=== PATIENT | female | born 1975 | race African-American/Black ===

== ENCOUNTER 2016-10-07 11:07 | Emergency (ER) | payer SELFPAY ==
[~2016-10-07] VITALS: Ht 170.2 cm; Wt 90.7 kg
--- NOTE | 2016-10-07 11:40 | ED GI/GU/ABDOMINAL COMPLAINT ---
History of Present Illness General Chief Complaint: Abdominal Pain/Flank Pain Stated Complaint: R SIDED ABD PAIN Source: patient Exam Limitations: no limitations Vital Signs & Intake/Output Vital Signs & Intake/Output Vital Signs Date Time Temp Pulse Resp B/P B/P Pulse O2 O2 Flow FiO2 Mean Ox Delivery Rate 10/07 1432 97.5 77 18 155/71 97 10/07 1116 96.7 77 20 129/73 98 Room Air Allergies Coded Allergies: No Known Allergies (10/07/16) Reconcile Medications Hydrocodone/Acetaminophen (Upton 5-325 Tablet) 5 MG-325 MG TABLET 1-2 TAB PO Q4-6 PRN PRN pain Triage Note: PT TO ED C/O "EXCRUTIATING PAIN" TO OVARY AND PELVIC AREA X A MONTH. WORSE TODAY. C/O VOMITING, DENIES DIARRHEA. DENIES S/S. Triage Nurses Notes Reviewed? yes LMP (ages 10-50): date (2 WEEKS) ? N Is pt currently ? No Onset: Abrupt Duration: day(s): (1), constant, continues in ED, getting worse Timing: recent history Quality/Severity: moderate, sharpness, stabbing Severity Numbers: 10 Location: right lower quadrant, suprapubic Radiation: no radiation Activities at Onset: none Prior Abdominal Problems: similar symptoms Sexually Active: Yes Last Time You Were Sexual: less than 2 months ago Sexual Orientation: Homosexual Use of Protection: No No Modifying Factors: none Modifying Factors: Worsens With: movement, palpation, urinating. Associated Symptoms: abdominal pain, nausea/vomiting HPI: 41-year-old female with a past medical history of asthma presents complaining of pain in her right lower abdomen for the past day. Patient reports she's been having this pain intermittently for the past year. Patient reports that pain will start about 2 weeks before her period and last for a few days before going away completely. The pain is progressively getting worse. This current episode started this morning and is much more severe than usual. Pain is located in the right lower quadrant suprapubic area and does not radiate. She describes the pain as sharp and stabbing and rates the pain as a 10 out of 10. She is not taking any medicine for the pain. This is the same type pain that she usually has each month that is more severe. She reports associated nausea and vomiting. Pain is worse when she urinates. No vaginal discharge, vaginal bleeding, frequency, urgency, back pain, chest pain, shortness of breath. She is sexually active with females only and has no history of STDs. She does report a history of uterine fibroids. No abdominal surgeries. (LENIN MASSEY PA-C) Past History Travel History Traveled to [place] past 21 day No Medical History Any Pertinent Medical History? see below for history Respiratory: asthma Surgical History Surgical History: none Psychosocial History What is your primary language Cymro Tobacco Use: Never used ETOH Use: denies use Illicit Drug Use: denies illicit drug use Family History Hx Contributory? Yes (LENIN MASSEY PA-C) Review of Systems Review of Systems Constitutional: Reports: no symptoms. EENTM: Reports: no symptoms. Respiratory: Reports: no symptoms. Cardiovascular: Reports: no symptoms. GI: Reports: see HPI, abdominal pain, nausea, vomiting. Genitourinary: Reports: no symptoms. Musculoskeletal: Reports: no symptoms. Skin: Reports: no symptoms. Neurological/Psychological: Reports: no symptoms. Hematologic/Endocrine: Reports: no symptoms. Immunologic/Allergic: Reports: no symptoms. All Other Systems: Reviewed and Negative (LENIN MASSEY PA-C) Physical Exam Physical Exam General Appearance: well developed/nourished, alert, awake, anxious, moderate distress Head: atraumatic, normal appearance Eyes: Bilateral: normal appearance, PERRL, EOMI, normal inspection. Ears, Nose, Throat, Mouth: hearing grossly normal, moist mucous membrane, Tympanic normal Neck: normal inspection, full range of motion, no midline tenderness Respiratory: normal breath sounds, chest non-tender, no respiratory distress, lungs clear Cardiovascular: regular rate/rhythm, normal peripheral pulses Peripheral Pulses: 2+ radial (R), 2+ radial (L), 2+ dorsalis pedis (R), 2+ dorsalis pedis (L) Gastrointestinal: normal bowel sounds, soft, no organomegaly, tenderness (rlq, suprapubic) Back: normal inspection, normal range of motion Extremities: normal range of motion Neurologic/Psych: no motor/sensory deficits, awake, alert, oriented x 3, normal gait, normal mood/affect Skin: intact, normal color, warm/dry Core Measures ACS in differential dx? No Severe Sepsis Present: No Septic Shock Present: No (BLACK PA-C,LENIN) Progress Differential Diagnosis: appendicitis, biliary colic, cholecystitis, diverticulitis, ectopic , gastritis, ischemic bowel, inflamm bowel dis, intrauterine , kidney stone, ovarian cyst, ovarian torsion, pancreatitis, PID/cervicitis, peptic ulcer, PUD/GERD, perforated viscous, SBO, UTI/pyelo, Uterine fibroids, mittelschmerz Plan of Care: Orders Procedure Date/time Status URINE 10/07 1152 Complete URINALYSIS 10/07 1152 Complete LIPASE 10/07 1152 Complete LACTIC ACID 10/07 1152 Complete C-REACTIVE PROTEIN 10/07 1152 Complete COMPREHENSIVE METABOLIC PANEL 10/07 1152 Complete CBC WITHOUT DIFFERENTIAL 10/07 1152 Complete Current Medications Sig/Vaishnavi Start time Last Medication Dose Stop Time Status Admin Ondansetron HCl 4 MG ONCE ONE 10/07 1215 CAN (Zofran) 10/07 1216 Laboratory Tests 10/07/16 1453: Lactic Acid Cancelled 10/07/16 1322: Urinalysis LIGHT H, Urine Color YEL, Urine Clarity HAZY H, Urine pH 6.0, Ur Specific Mccarley 1.025, Urine Protein TRACE H, Urine Ketones TRACE H, Urine Nitrite NEG, Urine Bilirubin NEG, Urine Urobilinogen 1.0, Ur Leukocyte Esterase NEG, Ur Microscopic SEDIMENT EXAMINED, Urine RBC 1-3, Urine WBC RARE, Ur Epithelial Cells MOD H, Urine Bacteria FEW H, Urine Mucus MOD H, Urine Hemoglobin NEG, Urine Glucose NEG, Urine Test NEGATIVE 10/07/16 1209: Anion Gap 10, Estimated GFR > 60, BUN/Creatinine Ratio 11.3, Glucose 89, Lactic Acid 1.1, Calcium 9.1, Total Bilirubin 0.5, AST 20, ALT 28, Alkaline Phosphatase 72, C-Reactive Prot, Quant 1.3 H, Total Protein 7.2, Albumin 4.0, Globulin 3.2, Albumin/Globulin Ratio 1.3, Lipase 37, CBC w Diff NO MAN DIFF REQ, RBC 4.46, MCV 76.6 L, MCH 24.3 L, RDW 19.3 H, MPV 8.7, Gran % 73.5, Lymphocytes % 17.2 L, Monocytes % 7.4, Eosinophils % 0.4, Basophils % 1.5, Absolute Granulocytes 8.0 H, Absolute Lymphocytes 1.9, Absolute Monocytes 0.8 H, Absolute Eosinophils 0, Absolute Basophils 0.2, PUBS MCHC 31.7 L 12 PM: Patient seen and evaluated. Patient reports she's been having the same type of pain each month about 2 weeks before her periods for over the last year. It is more severe but is located in the same spot and is in the same quality. She will have basic blood work and a CT scan of her abdomen and pelvis. She'll be given a liter normal saline and IV Toradol for pain. 2:25 PM: CT scan of the abdomen and pelvis with contrast does not show any acute abnormalities. Appendix appears normal, ovaries are normal. There are fibroids within the uterus but patient was already. Blood work is within normal limits other than mild anemia which is also likely related to uterine fibroids. She is feeling much better after IV Toradol. Only mild pain with palpatiopn of suprapubic area. Reviewed all results of today's visit with patient. Advised her to follow-up with her primary care doctor and [facility] doctor as soon as possible. She will be given a dose of norco before she leaves. Patient will be discharged home with Upton to use for pain. Advised her to return to the emergency department with any concerns. pt is nontoxic-appearing at discharge and agrees with the plan. (BRYSON NICOLE,LENIN) Diagnostic Imaging: Viewed by Me: CT Scan. Initial ED EKG: none Comments: PATIENT: BERNICE RHOADES PRESENT AGE: 41 PATIENT ACCOUNT NO: [id number] : 76 LOCATION: [facility] ORDERING PHYSICIAN: LENIN MASSEY PA-C SERVICE DATE: 10/07/16 EXAM TYPE: CAT - CT ABD & PELVIS W IV CONTRAST EXAMINATION: CT ABDOMEN AND PELVIS WITH CONTRAST CLINICAL INFORMATION: Right lower quadrant and suprapubic pain x1 day. Ovarian cyst, appendectomy, fibroids COMPARISON: None TECHNIQUE: Multidetector volumetric imaging was performed from the lung bases through the pubic symphysis following the uneventful administration of: Oral contrast: No Intravenous contrast: 95 cc Optiray 320 Sagittal and coronal reformatted images were obtained on the technologist workstation. FINDINGS: LUNG BASES: The visualized lung bases are unremarkable. LIVER, GALLBLADDER, AND BILIARY TREE: The liver is normal in size, shape, and attenuation. No focal hepatic lesion or biliary ductal dilatation is present. The gallbladder is unremarkable with no evidence of radiopaque gallstones, gallbladder wall thickening, or obvious pericholecystic inflammatory changes. PANCREAS: Normal; no mass or surrounding fluid. SPLEEN: Normal size. No focal lesion. ADRENAL GLANDS: Normal; no mass. KIDNEYS AND URETERS: Hypoenhancing subcentimeter lesion in the anterior cortex of the right mid kidney is too small to definitively characterize but most likely represents a simple cyst. There is a likewise additional likely simple cyst of the posterior cortex of the upper pole the right kidney. Otherwise, the kidneys are normal in size, shape, and attenuation. No hydronephrosis, hydroureter, or calculi. GASTROINTESTINAL TRACT: Stomach and small bowel non-dilated. No colonic wall thickening or pericolonic inflammatory changes. Normal appendix. ABDOMINAL WALL: No significant hernia is appreciated. LYMPHOVASCULAR STRUCTURES: No lymphadenopathy. The aorta is unremarkable. BLADDER: No focal mass or wall thickening seen. No bladder calculi. PELVIC VISCERA: The uterus is markedly enlarged with innumerable heterogeneous leiomyomata. There is a 10.5 x 9.1 x 10.3 cm leiomyoma which extends off the right uterine fundus into the right central abdomen. There is an additional exophytic 7.6 x 5.5 x 6.4 cm leiomyoma in the midline at the level of the umbilicus. Not including these 2 exophytic leiomyomas, the uterus measures 18.6 x 9.9 x 10.5 cm. Normal-appearing ovaries are seen bilaterally. Small amount of simple pelvic free fluid is present. OSSEOUS STRUCTURES: No acute or suspicious osseous abnormality. IMPRESSION: Normal appendix. Normal CT appearance of the ovaries bilaterally. Small volume of simple free fluid in the pelvis. Markedly enlarged myomatous uterus, as described above. DICTATED BY: CORINNA RYAN MD DATE/TIME DICTATED:10/07/161403 CERAMIC SAW TENDER:ESTEFANY DATE/TIME TRANSCRIBED:10/07/161403 CONFIDENTIAL, DO NOT COPY WITHOUT APPROPRIATE AUTHORIZATION. <Electronically signed in Other Vendor System> SIGNED BY: CORINNA RYAN MD [id number] (LENIN MASSEY PA-C) Departure Departure Disposition: HOME OR SELF CARE Condition: Stable Clinical Impression Primary Impression: Abdominal pain Qualifiers: Abdominal location: right lower quadrant Qualified Code: R10.31 - Right lower quadrant pain Referrals: PATIENT HAS NO PRIMARY CARE DR (PCP/Family) Additional Instructions: Rest and drink plenty of fluids. Use Tylenol and ibuprofen as needed for pain. Upton can be used for severe pain only. This is a narcotic and may cause drowsiness and constipation. Do not drive while taking it. Follow-up with your primary care doctor and [facility] doctor as soon as possible to review all results of today's visit. Return to the emergency department with any concerns. Please go over all results of today's visit with your primary care doctor. Contact your primary care doctor to let them know you were here in the emergency room. There may be nonspecific findings which may not be related to your visit today here in the emergency room but may require further evaluation and chronic monitoring by your primary care doctor. If you had a laceration today the chance of foreign body always remains. You should follow-up with your primary care doctor for recheck in 3-5 days for a wound check. If you had an x-ray done there is a chance that a fracture could have been missed on initial read and you should follow-up with your primary care doctor for repeat x-rays if symptoms persist. If your blood pressure was elevated here in the emergency room please have rechecked by her primary care doctor within the next 48 hours by your primary care doctor. If you were prescribed a narcotic here in the emergency room or any type of controlled substances you're not allowed to drive while taking this medication or operate any type of heavy machinery. Narcotics can make you feel lightheaded dizziness nausea and can cause constipation. You may need to continuous pickling line pickler a stool softener. Thank you for choosing [facility] emergency room. Please return to the emergency room immediately if you have any other concerns worsening of symptoms. Departure Forms: Customer Survey General Discharge Information Prescriptions: Current Visit Scripts Hydrocodone/Acetaminophen (Upton 5-325 Tablet) 1-2 TAB PO Q4-6 PRN PRN pain #10 TAB (LENIN MASSEY PA-C) PA/PLASTIC PRINTER Co-Sign Statement Statement: ED Attending supervision documentation- [] I saw and evaluated the patient. I have also reviewed all the pertinent lab results and diagnostic results. I agree with the findings and the plan of care as documented in the PA's/PLASTIC PRINTER's documentation. [X] I have reviewed the ED Record and agree with the PA's/PLASTIC PRINTER's documentation. [] Additions or exceptions (if any) to the PAs/PLASTIC PRINTER's note and plan are summarized below: [] (RAY TAMEZ,JOANN Cagle)
[2016-10-07 12:24] LABS: ABSOLUTE BASOPHIL COUNT 0.2 /CUMM (0.0-0.2); ABSOLUTE EOSINOPHIL COUNT 0 /CUMM (0.0-0.7); ABSOLUTE LYMPH COUNT 1.9 /CUMM (1.2-3.4); ABSOLUTE MONOCYTE COUNT 0.8 /CUMM (0.10-0.60); BASOPHIL % 1.5 % (0.0-2.0); EOSINOPHIL % 0.4 % (0-5); GRANULOCYTE % 73.5 % (42.2-75.2); HEMATOCRIT 34.1 % (37-47); MEAN CORPUSCULAR HGB 24.3 PG (27.0-31.0); MEAN CORPUSCULAR HGB CONC 31.7 G/DL (33.0-37.0); MEAN CORPUSCULAR VOLUME 76.6 FL (81.0-99.0); MEAN PLATELET VOLUME 8.7 FL (7.4-10.4); PLATELET COUNT 333 /CUMM (130-400); RBC DISTRIBUTION WIDTH 19.3 % (11.5-14.5); RED BLOOD CELL CT 4.46 /CUMM (4.20-5.40); WHITE BLOOD CELL COUNT 10.9 /CUMM (4.8-10.8)
--- NOTE | 2016-10-07 14:13 | CT SCAN REPORT ---
EXAMINATION: CT ABDOMEN AND PELVIS WITH CONTRAST CLINICAL INFORMATION: Right lower quadrant and suprapubic pain x1 day. Ovarian cyst, appendectomy, fibroids COMPARISON: None TECHNIQUE: Multidetector volumetric imaging was performed from the lung bases through the pubic symphysis following the uneventful administration of: Oral contrast: No Intravenous contrast: 95 cc Optiray 320 Sagittal and coronal reformatted images were obtained on the technologist workstation. FINDINGS: LUNG BASES: The visualized lung bases are unremarkable. LIVER, GALLBLADDER, AND BILIARY TREE: The liver is normal in size, shape, and attenuation. No focal hepatic lesion or biliary ductal dilatation is present. The gallbladder is unremarkable with no evidence of radiopaque gallstones, gallbladder wall thickening, or obvious pericholecystic inflammatory changes. PANCREAS: Normal; no mass or surrounding fluid. SPLEEN: Normal size. No focal lesion. ADRENAL GLANDS: Normal; no mass. KIDNEYS AND URETERS: Hypoenhancing subcentimeter lesion in the anterior cortex of the right mid kidney is too small to definitively characterize but most likely represents a simple cyst. There is a likewise additional likely simple cyst of the posterior cortex of the upper pole the right kidney. Otherwise, the kidneys are normal in size, shape, and attenuation. No hydronephrosis, hydroureter, or calculi. GASTROINTESTINAL TRACT: Stomach and small bowel non-dilated. No colonic wall thickening or pericolonic inflammatory changes. Normal appendix. ABDOMINAL WALL: No significant hernia is appreciated. LYMPHOVASCULAR STRUCTURES: No lymphadenopathy. The aorta is unremarkable. BLADDER: No focal mass or wall thickening seen. No bladder calculi. PELVIC VISCERA: The uterus is markedly enlarged with innumerable heterogeneous leiomyomata. There is a 10.5 x 9.1 x 10.3 cm leiomyoma which extends off the right uterine fundus into the right central abdomen. There is an additional exophytic 7.6 x 5.5 x 6.4 cm leiomyoma in the midline at the level of the umbilicus. Not including these 2 exophytic leiomyomas, the uterus measures 18.6 x 9.9 x 10.5 cm. Normal-appearing ovaries are seen bilaterally. Small amount of simple pelvic free fluid is present. OSSEOUS STRUCTURES: No acute or suspicious osseous abnormality. IMPRESSION: Normal appendix. Normal CT appearance of the ovaries bilaterally. Small volume of simple free fluid in the pelvis. Markedly enlarged myomatous uterus, as described above.
[2016-10-07] MEDS ORDERED: NORCO 5-325 TA1 EACH PO (14:30)
[2016-10-07 14:32] VITALS: BP 155/71
== END 2016-10-07 14:53 ==
LOC: ERH 11:07
PROVIDERS: Physician Assistant Medical
DX: R10.31 Right lower quadrant pain (principal)
CPT/HCPCS: 74177; 81001; 81025; 96374; J1885